=== PATIENT | male | born 1960 | race Caucasian/White ===

== ENCOUNTER 2018-10-21 10:10 | Emergency (ER) | payer OTHER ==
[2018-10-21 10:29] VITALS: BP 152/85
--- NOTE | 2018-10-21 11:13 | UC ---
General HPI - HPI Summary HPI Summary: Patient states he was fixing a shower yesterday, floor was wet - this was while at work at [employer]. He slipped while getting tools and fell and drove his right knee in the wrong direction. States he hurts to walk on it. States it is worse with driving and walking. 20 yrs ago appears to have had an injury and surgery on same knee with Dr. Beth. Meds; Reviewed. States he already has percocet - History of Current Complaint Chief Complaint: UCLowerExtremity Stated Complaint: RT KNEE INJURY Time Seen by Provider: 10/21/18 11:01 Pain Intensity: 10 - Allergy/Home Medications Allergies/Adverse Reactions: Allergies Allergy/AdvReac Type Severity Reaction Status Date / Time bee venom protein (honey bee) Allergy Anaphylatic Verified 10/21/18 10:24 Shock Cephalosporins Allergy Anaphylatic Verified 10/21/18 10:24 Shock Penicillins Allergy Anaphylatic Verified 10/21/18 10:24 Shock tomato Allergy Anaphylatic Verified 10/21/18 10:24 Shock Home Medications: Home Medications Aspirin 81 mg PO DAILY 10/21/18 [History Confirmed 10/21/18] Empagliflozin [Jardiance] 25 mg PO DAILY 10/21/18 [History Confirmed 10/21/18] Gabapentin 600 mg PO TID 10/21/18 [History Confirmed 10/21/18] Metformin HCl [Fortamet] 500 mg PO EVERY OTHER DAY 10/21/18 [History Confirmed 10/21/18] Metoprolol Succinate 25 mg PO DAILY 10/21/18 [History Confirmed 10/21/18] Telmisartan 1 tab PO DAILY 10/21/18 [History Confirmed 10/21/18] oxyCODONE/Acetamin 10/325(NF) [Percocet 10/325 (NF)] 1 tab PO Q4HR PRN 10/21/18 [History Confirmed 10/21/18] PMH/Surg Hx/FS Hx/Imm Hx Previously Healthy: Yes Endocrine History: Diabetes Cardiovascular History: Hypertension - Surgical History Surgical History: Yes Surgery Procedure, Year, and Place: cardiac stents, maker 100% blockage. bilateral elbow ulnar nerves. umbilical and hiatal hernia repair - Social History Alcohol Use: Occasionally Substance Use Type: None Substance Use Comment - Amount & Last Used: Percocet Smoking Status (MU): Former Smoker Household Exposure Type: Cigarettes Review of Systems All Other Systems Reviewed And Are Negative: Yes Physical Exam Triage Information Reviewed: Yes Appearance: Well-Appearing Vital Signs: Initial Vital Signs Temp 98 F 10/21/18 10:18 Pulse 59 10/21/18 10:18 Resp 18 10/21/18 10:18 BP 152/85 10/21/18 10:18 Pulse Ox 96 10/21/18 10:18 Musculoskeletal: Positive: Other: - right knee slightly edematous and erythematous. Full ROM. Pain with meniscal provacation testing and anterior drawer sign Diagnostics - Radiology right knee Radiology Interpretation Completed By: Radiologist Summary of Radiographic Findings: no evidence for fracture Course/Dx - Course Course Of Treatment: This is a 58 yr old who fell at work yesterday and injured right knee Right knee xray : negative SUspect tendon injury vs contusion Plan Recommend continue percocet as needed Can also start Naproxen - take with food Recommend follow up with Occupational Medicine - Dr. Perkins for workers comp injury - Diagnoses Provider Diagnosis: Contusion of right knee Discharge - Sign-Out/Discharge Documenting (check all that apply): Patient Departure All imaging exams completed and their final reports reviewed: Yes - Discharge Plan Condition: Fair Disposition: HOME Patient Education Materials: Knee Pain (ED) Referrals: Val Ball RN [Primary Care Provider] - Henry Perkins MD [Medical Doctor] - Additional Instructions: Recommend continue percocet as needed Can also start Naproxen - take with food Recommend follow up with Occupational Medicine - Dr. Perkins for workers comp injury - Billing Disposition and Condition Condition: FAIR Disposition: Home
[2018-10-21 13:38] LABS: Hepatitis C Antibody Negative (Negative)
== END 2018-10-21 12:03 | disposition home or self-care (01) ==
LOC: UCEAST 10:10
DX: S80.01XA Contusion of right knee, initial encounter (principal); W18.2XXA Fall in (into) shower or empty bathtub, initial encounter; Y93.89 Activity, other specified; Y92.012 Bathroom of single-family (private) house as the place of occurrence of the external cause; Y99.0 Civilian activity done for income or pay; E11.9 Type 2 diabetes mellitus without complications; I10 Essential (primary) hypertension; Z87.891 Personal history of nicotine dependence; Z79.82 Long term (current) use of aspirin; Z88.0 Allergy status to penicillin; Z79.84 Long term (current) use of oral hypoglycemic drugs
CPT/HCPCS: 36415; 86803; 99213; G0463

== ENCOUNTER 2019-01-06 05:34 | Day surgery (SDC) | payer OTHER ==
--- NOTE | 2018-12-29 13:27 | HP ---
HISTORY AND PHYSICAL: DATE OF ADMISSION/SURGERY: 01/06/19 DATE OF OFFICE VISIT: 12/26/18 SURGEON: Mila Rome MD.* (DICTATED BY CLARI MCMILLAN) PROCEDURE: Right knee arthroscopy, partial meniscectomy, possible chondroplasty , synovectomy, and plica excision. CHIEF COMPLAINT: Right knee pain. HISTORY OF PRESENT ILLNESS: Mr. Louise is a 58-year-old male who slipped in the shower while working at [employer] on 10/21/18. He felt a pop in his knee and his knee became extremely painful and swollen after that. Since that time he has continued to have a 6/10 sharp pain along the medial joint line of his knee. Cortisone injection, anti-inflammatories and pain medications have not helped him. He has also tried a brace as well as physical therapy. He feels that physical therapy exacerbated his pain. At this point, he failed conservative treatment and he is a candidate for knee arthroscopy. He also continues to have difficulty walking, bending, pivoting and twisting. PAST MEDICAL HISTORY: Myocardial infarction 2015, borderline diabetes, hypercholesterolemia, chronic pain in bilateral elbows. PAST SURGICAL SURGERY: Bilateral elbow ulnar nerve decompression, right wrist ORIF, and cardiac stent in 2014. MEDICATIONS: 1. Aspirin 81 mg 1 p.o. daily. 2. Lunesta 3 mg 1 p.o. at bedtime as needed. 3. Percocet 10/325 mg 1 p.o. every 6 hours as needed for pain. 4. Jardiance 25 mg 1 p.o. daily. 5. Telmisartan 40 mg 1 p.o. daily. 6. Metformin HCl 500 mg 1 tab p.o. every other day. 7. Gabapentin 300 mg 1 p.o. twice daily. ALLERGIES: PENICILLIN and CEPHALOSPORIN result in rash and hives. CEPHALOSPORIN results in anaphylactic shock. FAMILY HISTORY: Positive for coronary artery disease, hypertension, rheumatoid arthritis. SOCIAL HISTORY: He works at [employer]. He lives at home with his spouse. He is a former smoker, he quit in 2014. He was smoking 2 packs per day x20 years prior to quitting. He denies any recreational drug use. He drinks 3 alcoholic beverages per week. He is right-hand dominant. REVIEW OF SYSTEMS: General: Negative for fevers, chills, night sweats, unexplained weight loss or gain. No known anesthesia problems. HEENT: Negative for headache, lightheadedness, syncopal episodes or visual changes. Integumentary: Negative for abrasions, lesions or open wounds. Cardiothoracic: Negative for hypertension, chest pain, palpitations, or edema. Respiratory: Negative for shortness of breath with exertion, chronic cough or wheezing. GI: Negative for nausea, vomiting, diarrhea, constipation, or GERD symptoms. : Negative for nocturia, urinary frequency, urgency, history of UTIs or kidney problems. Musculoskeletal: Positive for right knee pain, positive for history of right wrist fracture. Negative for chronic or intermittent back pain. Neurologic: Negative for paraesthesias, numbness, history of seizures, stroke or poor balance. Negative for anxiety or depression. Endocrine: Positive for borderline diabetes. Negative for thyroid issues. Hematologic: Negative for easy bruising, anemia, bleeding disorders, history of DVT or PE. ID: Negative for history of MRSA infection, hep C, or HIV. PHYSICAL EXAMINATION GENERAL: Well-developed, well-nourished, 58-year-old male, in no acute distress. VITAL SIGNS: Height 67 inches, weight 240 pounds, pulse 70, BP 156/82, respirations 12, BMI 37.7. HEENT: Normocephalic, atraumatic. PERRLA. Extraocular movements intact. Throat is clear. NECK: Supple. No palpable lymph nodes. PULMONARY: Lungs are clear to auscultation bilaterally. No wheezes, rales or rhonchi. CARDIO: Regular rate and rhythm. S1 and S2 normal. No murmurs, rubs, or gallops. No edema. ABDOMEN: Positive bowel sounds, soft and nontender. NEUROLOGIC: A and O x3. Cranial nerves II through XII are intact. Sensation is intact to light touch. MUSCULOSKELETAL: Right lower extremity: Skin is intact with no abrasions or open wounds. There is no soft tissue swelling, erythema, or bruising. No palpable masses or lymph nodes. Moderate effusion of the knee with tenderness along the medial joint line. Positive Apley's and positive Malinda's. Range of motion is 0 to 100 degrees. Flexion with severe pain at end range. No varus or valgus instability. He is able to dorsiflex and plantarflex his ankle with 5/5 strength. Sensation is intact to light touch. DP pulses 2+. DIAGNOSTIC STUDIES: MRI of the right knee from 11/11/18 showed bone marrow edema along the medial femoral condyle, possible small osteochondral defect as well as medial meniscus tear. IMPRESSION: Right knee medial meniscus tear. PLAN: The patient is scheduled to undergo a right knee arthroscopy, partial meniscectomy, possible chondroplasty and synovectomy with Dr. Rome on . Dr. Rome discussed the procedure as well as the risks and benefits with the patient and he elects to proceed. He will return to the office 10 to 14 days postop for followup and suture removal. The patient is already on Percocet for chronic pain and we will continue this for postoperative pain management. CLARI MCMILLAN [id number]/[facility] #: [id number] MTDAngy
[~2019-01-06 05:34] MED LIST: Buffered Lidocaine 1% SYRIN* 1 ML/SYRINGE INTRADERM ONE
[2019-01-06] MEDS ORDERED: Dexamethasone IV* 4 MG/ML 1 ML (4 MG) ONE (05:59)
[2019-01-06] MEDS ORDERED: Buffered Lidocaine 1% SYRIN* 1 ML/SYRINGE INTRADERM ONE (06:00)
[2019-01-06] MEDS ORDERED: Famotidine IV* 10 MG/ML 2 ML (20 mg) ONE (06:00)
[2019-01-06] MEDS ORDERED: Dexamethasone IV* 4 MG/ML 1 ML (4 MG) IV SLOW PU ONE (06:00)
[2019-01-06] MEDS ORDERED: ceFAZolin 2 GM in NS PREMIX(*) 0 GM/0 ML BAG IVPB ONE (06:00)
[2019-01-06] MEDS ORDERED: Lactated Ringers 1000 ML Bag* 1,000 ML IV SCH (06:00)
[2019-01-06] MEDS ORDERED: Famotidine IV* 10 MG/ML 2 ML (20 mg) IV ONE (06:00)
[2019-01-06] MEDS ORDERED: Clindamycin 900 MG/D5W BAG(*) 900 MG/50 ML BAG IVPB ONE (06:36)
[2019-01-06] MEDS ORDERED: EPINEPHRINE 1 MG/ML 1 ML VIAL ONE (06:49)
[2019-01-06] MEDS ORDERED: methylPREDNISolone ACETATE 80* 80 MG/ML 1 ML VIAL ONE (06:49)
[2019-01-06] MEDS ORDERED: ROPIVACAINE 5 MG/ML 30 ML BTL (0.5%) ONE (06:50)
[2019-01-06] MEDS ORDERED: Ondansetron INJ* 2 MG/ML VIAL ONE (07:14)
[2019-01-06] MEDS ORDERED: Ketorolac INJ* 30 MG/ML 1 ML VIAL ONE (07:14)
[2019-01-06] MEDS ORDERED: Chloroprocaine 2%* 20 ML VIAL ONE (07:14)
[2019-01-06] MEDS ORDERED: Propofol* 10 MG/ML 20 ML BTL ONE (07:14)
[2019-01-06] MEDS ORDERED: Midazolam* 1 MG/ML 5 ML VIAL (5 MG) ONE (07:19)
[2019-01-06] MEDS ORDERED: Naloxone* 0.4 MG/ML 1 ML VIAL IV PRN (07:54)
[2019-01-06] MEDS ORDERED: fentaNYL* 50 MCG/ML 2 ML VIAL (100 MCG VIAL) IV PRN (07:54)
[2019-01-06] MEDS ORDERED: Ondansetron INJ* 2 MG/ML VIAL IV PRN (07:54)
[2019-01-06] MEDS ORDERED: DiMENhydriNATE IV* 50 MG/ML VIAL IV PUSH PRN (07:54)
[2019-01-06] MEDS ORDERED: oxyCODONE/Acetamin 5/325 MG* TAB PO PRN (07:54)
[2019-01-06] MEDS ORDERED: oxyCODONE/Acetamin 5/325 MG* TAB ONE (10:06)
[2019-01-06 10:07] VITALS: BP 144/67
--- NOTE | 2019-01-06 22:24 | OP ---
OPERATIVE NOTE: DATE OF OPERATION: 01/06/19 - [facility] DATE OF : 58 ATTENDING SURGEON: Mila Rome MD ANESTHESIOLOGIST: Dr. Correia. ANESTHESIA: General. PRE-OP DIAGNOSES: Right knee pain with medial femoral condyle osteochondral defect and possible meniscal tear. POST-OP DIAGNOSES: Right medial femoral condyle osteochondral defect, mild-to- moderate degenerative osteoarthritis in the medial and patellofemoral compartment, anterior synovitis. OPERATIVE PROCEDURE: Right knee arthroscopy with anterior synovectomy. EBL: Less than 25 cc. SPECIMEN: None. COMPLICATIONS: None. BRIEF HISTORY/INDICATIONS: Mr. Louise is a 58-year-old gentleman, who had a fall while working on the right knee 10/21/18. Since that time, he has had mechanical symptoms along the medial joint line. MRI did show an osteochondral defect in the medial femoral condyle as well as a possible medial meniscal tear. The patient failed conservative treatment and continued to have pain and mechanical symptoms. Due to continued pain and decreased quality of life, he elected to undergo right knee arthroscopy with possible synovectomy, possible chondroplasty, possible partial meniscectomy. Informed consent was obtained from the patient. He understood the risks of the surgery included, but were not limited to bleeding, infection, damage to nearby structures, continued pain , need for further surgery, re-tear of the meniscus, progression of arthritis, breakdown of cartilage, stroke, heart attack, blood clot, and . He wished to proceed. INTRAOPERATIVE FINDINGS: Intraoperatively, the patient was found to have both an osteophyte along the medial femoral condyle as well as the osteochondral defects. The cartilage was not completely broken down over this. Decision was made to not perform chondroplasty. There was some grade 2 and 3 Outerbridge cartilage changes of the patellofemoral compartments. There was a significant amount of anterior synovitis and question of a chronic anterior and medial meniscal tear. DESCRIPTION OF PROCEDURE: Mr. Louise was identified in the preanesthesia unit. His right lower extremity was marked as the correct operative side. Informed consent was signed and placed in the chart. The patient was taken to the operating room and placed under anesthesia. Right lower extremity was prepped and draped in the usual sterile fashion. Preop time-out was made to correctly identify the patient, side, and site. Appropriate perioperative antibiotics were given within 1 hour of incision. Standard 0.5 cm anterolateral portal incision was made with a 10 blade and carried down to the capsule. Trocar was introduced. As soon as the light and water sources were turned on, there was immediate visualization of the suprapatellar pouch. A tour of the knee joint was performed. Suprapatellar pouch had some small pieces of cartilage, but no other abnormality. Patellofemoral compartment shows grade 2 and 3 Outerbridge cartilage changes with frayed cartilage. No large areas of exposed subchondral bone. There was an osteophyte along the medial femoral condyle. The medial gutter showed no loose body or plica. Medial femoral condyle had the OCDs, but the cartilage was not broken down full thickness over this area. There was no large cartilage flapping. There was an abnormality along the anterior medial meniscus that seemed to be a chronic radial tear. Posterior meniscus showed no obvious meniscal tear. ACL and PCL appeared to be intact. There was some significant amount of anterior synovitis, which did impinge with knee range of motion along the medial compartment and patellofemoral compartment. The knee was placed in a [id number] position. No obvious tear of the lateral meniscus was noted. No significant degenerative changes. Lateral gutter had no loose body or plica. Under direct visualization, a medial portal incision was made with a 10-blade. A probe was introduced and a second tour of the knee joint was performed. There was no obvious tear of the medial meniscus posteriorly. The shaver and radiofrequency ablation wand were used to perform an anterior synovectomy. There was no longer significant impingement along the anterior cartilage of the medial femoral condyle or in the patellofemoral compartment. Decision was made not to perform chondroplasty along the osteochondral defect of the medial femoral condyle, as this cartilage was completely broken down. The knee was copiously irrigated. Any small bits of cartilage were carefully irrigated and removed from the knee joint. All instruments were removed. Incisions were closed using 3-0 nylon suture. Incisions were covered with Xeroform, 4x4s, and Webril. Wojciech wrap and cold pack were placed over this. The patient's anesthesia was reversed without difficulty. He was taken to the PACU in stable condition. Intended weightbearing will be weightbearing as tolerated. Intended DVT prophylaxis will be aspirin. [id number]/[facility] #: [id number] [facility]
== END 2019-01-06 10:30 | disposition home or self-care (01) ==
LOC: OR 05:34
PROVIDERS: ATTEND Orthopaedic Surgery Adult Reconstructive Orthopaedic Surgery
DX: S83.8X1A Sprain of other specified parts of right knee, initial encounter (principal); M17.11 Unilateral primary osteoarthritis, right knee; M21.861 Other specified acquired deformities of right lower leg; W19.XXXA Unspecified fall, initial encounter; Y92.89 Other specified places as the place of occurrence of the external cause; Y99.0 Civilian activity done for income or pay; I25.2 Old myocardial infarction; R73.03 Prediabetes; E78.00 Pure hypercholesterolemia, unspecified; Z87.891 Personal history of nicotine dependence
CPT/HCPCS: A9270-GY; J0690; J1040; J1100; J1885; J2250; J2400; J2405; J2704; J2795

== ENCOUNTER 2019-02-03 18:39 | Inpatient (IN) | payer OTHER ==
--- NOTE | 2019-02-03 21:29 | ED ---
Lower Extremity - HPI Summary HPI Summary: Patient complains of right knee pain 3 days. Patient states history of right knee arthroscopy with Dr. Rome at beginning of January. No symptoms until 3 days ago when he started walking up stairs at work. Complains of chills, swelling, pain and drainage of "cottage cheese" and "dark fluid" from surgical incision site starting 2 days ago. Patient states he was evaluated by Dr. Rome yesterday who attempted to aspirate knee with negative results. Patient was started on clindamycin and has taken first dose only this morning. Patient has follow-up appointment with Dr. Rome tomorrow. Denies trauma, fever, cough , sore throat, CP, SOB, N/V/D, abdominal pain, change in urine, change in BM. Medical history is per DM, cardiac stent. - History of Current Complaint Chief Complaint: EDExtremityLower Stated Complaint: POSS INFECTION PER PT Time Seen by Provider: 02/03/19 21:15 Hx Obtained From: Patient, Family/Zoo Director Mechanism Of Injury: Unknown Onset of Pain: Days Onset/Duration: Days Severity Initially: Mild Severity Currently: Severe Pain Intensity: 10 Pain Scale Used: 0-10 Numeric Timing: Constant Location: Is Discrete @ Character Of Pain: Aching, Throbbing Associated Signs And Symptoms: Positive: Swelling, Knee Pain Aggravating Factor(s): Standing, Ambulation, Movement, Weight Bearing Alleviating Factor(s): Rest, Elevation Able to Bear Weight: Yes - Allergies/Home Medications Allergies/Adverse Reactions: Allergies Allergy/AdvReac Type Severity Reaction Status Date / Time bee venom protein (honey bee) Allergy Anaphylatic Verified 01/06/19 06:06 Shock Cephalosporins Allergy Anaphylatic Verified 01/06/19 06:06 Shock Penicillins Allergy Anaphylatic Verified 01/06/19 06:06 Shock tomato Allergy Anaphylatic Verified 01/06/19 06:06 Shock PMH/Surg Hx/FS Hx/Imm Hx Endocrine/Hematology History: Reports: Hx Diabetes - BORDERLINE Denies: Hx Thyroid Disease Cardiovascular History: Reports: Hx Congestive Heart Failure - HX OF-WITH THE HEART ATTACK- REPORTS NO PROBLEMS SINCE, Hx Coronary Artery Disease - [address], Hx Hypertension - ON MEDICATION, Other Cardiovascular Problems/ Disorders - [employer]- [id number] Denies: Hx Pacemaker/ICD Respiratory History: Denies: Hx Asthma, Hx Chronic Obstructive Pulmonary Disease (COPD), Other Respiratory Problems/Disorders GI History: Reports: Hx Hiatal Hernia - REPORTS REPAIR IN THE PAST Denies: Other GI Disorders History: Denies: Hx Renal Disease, Other Problems/Disorders Musculoskeletal History: Denies: Other Musculoskeletal History Sensory History: Reports: Hx Contacts or Glasses - READING GLASSES Denies: Hx Hearing Aid Opthamlomology History: Reports: Hx Contacts or Glasses - READING GLASSES Neurological History: Denies: Hx Seizures, Other Neuro Impairments/Disorders Psychiatric History: Denies: Hx Panic Disorder - Surgical History Surgery Procedure, Year, and Place: cardiac stents, maker 100% blockage. bilateral elbow ulnar nerves. umbilical and hiatal hernia repair. RIGHT KNEE- GROUND A CHIP OFF OF KNEE. RIGHT WRIST WITH HARDWARE Hx Anesthesia Reactions: No - Immunization History Immunizations Up to Date: Yes Infectious Disease History: No Infectious Disease History: Reports: Hx Hepatitis - possibly? Denies: Traveled Outside the [place] in Last 30 Days - Family History Known Family History: Positive: Non-Contributory - Social History Alcohol Use: Rare Substance Use Type: Reports: Prescribed Substance Use Comment - Amount & Last Used: [employer] Smoking Status (MU): Former Smoker Amount Used/How Often: 1 .5-2 PPD X 20 YEARS Have You Smoked in the Last Year: No Review of Systems Constitutional: Negative Eyes: Negative ENT: Negative Cardiovascular: Negative Respiratory: Negative Gastrointestinal: Negative Genitourinary: Negative Musculoskeletal: Other Skin: Negative Neurological: Negative Psychological: Normal All Other Systems Reviewed And Are Negative: Yes Physical Exam - Summary Physical Exam Summary: Significant Extra warmth noted to right knee. Very limited range of motion to right knee, unclear whether secondary to pain or swelling. No erythema, deformity, ecchymosis noted. surgical incision sites appear clean dry and intact. No purulent drainage. Calf soft Nontender. PMS intact distally. Triage Information Reviewed: Yes Vital Signs On Initial Exam: Initial Vitals Temp Pulse Resp BP Pulse Ox 98.8 F 87 18 147/69 93 02/03/19 18:59 02/03/19 18:59 02/03/19 18:59 02/03/19 18:59 02/03/19 18:59 Vital Signs Reviewed: Yes Appearance: Positive: Well-Appearing Skin: Positive: Warm Head/Face: Positive: Normal Head/Face Inspection Eyes: Positive: Normal Neck: Positive: Supple Respiratory/Lung Sounds: Positive: Clear to Auscultation Cardiovascular: Positive: Normal Abdomen Description: Positive: Nontender Musculoskeletal: Positive: Normal Neurological: Positive: Normal Psychiatric: Positive: Normal AVPU Assessment: Alert - Kvng Coma Scale Best Eye Response: 4 - Spontaneous Best Motor Response: 6 - Obeys Commands - Review to be due to Best Verbal Response: 5 - Oriented Coma Scale Total: 15 Procedures - Sedation Patient Received Moderate/Deep Sedation with Procedure: No Diagnostics - Vital Signs Vital Signs Temp Pulse Resp BP Pulse Ox 02/03/19 18:59 98.8 F 87 18 147/69 93 - Laboratory Result Diagrams: 02/04/19 08:31 02/03/19 21:53 Lab Statement: Any lab studies that have been ordered have been reviewed, and results considered in the medical decision making process. Lower Extremity Course/Dx - Course Course Of Treatment: Patient complains of right knee pain 3 days. Patient states history of right knee arthroscopy with Dr. Rome at beginning of January. No symptoms until 3 days ago when he started walking up stairs at work. Complains of chills, swelling, pain and drainage of "cottage cheese" and "dark fluid" from surgical incision site starting 2 days ago. Patient states he was evaluated by Dr. Rome yesterday who attempted to aspirate knee with negative results. Patient was started on clindamycin and has taken first dose only this morning. Patient has follow-up appointment with Dr. Rome tomorrow. Denies trauma, fever, cough, sore throat, CP, SOB, N/V/D, abdominal pain, change in urine, change in BM. Medical history is per DM, cardiac stent. Vital signs within normal limits. WBC 11.4. CRP 136. Labs otherwise unremarkable. Discussed patient with orthopedics online editor Dr. Clement who recommended IV antibiotics and admission with ortho consult in the morning. Patient admitted to hospitalist. - Diagnoses Provider Diagnoses: Septic arthritis of knee, right Discharge ED - Sign-Out/Discharge Documenting (check all that apply): Patient Departure - Discharge Plan Condition: Stable Disposition: ADMITTED TO [facility] - Billing Disposition and Condition Condition: STABLE Disposition: Admitted to [facility] - Attestation Statements Provider Attestation: I was available for consult. This patient was seen by the JORGE L. The patient was not presented to, seen by, or examined by me. Dell Anglin MD
[2019-02-03 22:02] LABS: ABS Basophils 0.1 10^3/ul (0-0.2); ABS Eosinophils 0.1 10^3/ul (0-0.6); ABS Lymphocytes 3.8 10^3/ul (1.0-4.8); ABS Monocytes 1.3 10^3/ul (0-0.8); ABS Neutrophils 6.1 10^3/ul (1.5-7.7); Eosinophil % 1.2 %; Hematocrit 43 % (42-52); Hemoglobin 14.9 g/dL (14.0-18.0); Lymphocyte % 32.9 %; Mean Corpuscular HGB Conc 35 g/dL (31-36); Mean Corpuscular Hemoglobin 34 pg (27-31); Mean Corpuscular Volume 99 fL (80-94); Mean Platelet Volume 8.2 fL (7.4-10.4); Nucleated Red Blood Cells % 0.1; Platelet Count 170 10^3/uL (150-450); Red Blood Count 4.32 10^6 /uL (4.18-5.48); Red Cell Distribution Width 13 % (10-15); White Blood Count 11.4 10^3/uL (3.5-10.8)
[2019-02-03 22:18] LABS: Albumin 4.1 g/dL (3.2-5.2); Albumin/Globulin Ratio 1.3 (1-3); BUN/Creatinine Ratio 15.6 (8-20); C Reactive Protein 134.12 mg/L (<8.01); Calcium 8.9 mg/dL (8.6-10.3); EGFR African American 104.5 (>60); EGFR Non-African American 86.4 (>60); Globulin 3.2 g/dL (2-4); Potassium 3.5 mmol/L (3.5-5.0); Total Bilirubin 1.6 mg/dL (0.2-1.0); Total Protein 7.3 g/dL (6.4-8.9)
[2019-02-03] MEDS ORDERED: HYDROcodone/ACETAMIN 5-325 MG* 1 TAB PO ONE (22:42)
[2019-02-03] MEDS ORDERED: Morphine 4 MG/ML VIAL (1 ml) 4 MG/ML VIAL IV ONE (23:35)
[2019-02-03] MEDS ORDERED: Clindamycin VIAL(*) 450 MG in NS 0.9% 50 ML* 50 ML IVPB ONE (23:35)
[2019-02-03] MEDS ORDERED: Clindamycin 600 MG/D5W BAG(*) 600 MG/50 ML BAG IV ONE (23:59)
[2019-02-04 00:29] LABS: Urine Appearance Clear; Urine Bacteria Absent (Absent); Urine Bilirubin Negative (Negative); Urine Blood 1+ (Negative); Urine Color Yellow; Urine Glucose 3+(>=500 mg/dL) (Negative); Urine Ketones Negative (Negative); Urine Nitrite Negative (Negative); Urine Protein Negative (Negative); Urine Red Blood Cell Trace(0-2/hpf) (Absent); Urine Specific Gravity 1.038 (1.010-1.030); Urine Urobilinogen Negative (Negative); Urine White Blood Cell Absent (Absent)
[2019-02-04] MEDS ORDERED: Iodixanol* (CONTRAST) 320 MG/ML 100 ML SDV IV ONE (03:36)
[2019-02-04] MEDS ORDERED: Morphine 4 MG/ML VIAL (1 ml) 4 MG/ML VIAL IV PRN (04:27)
[2019-02-04] MEDS ORDERED: Acetaminophen TAB* 325 MG PO PRN ×2 (04:33→23:10)
[2019-02-04] MEDS: Enoxaparin(*) 40 MG/0.4 ML SYR SUBCUT SCH (06:04)
[2019-02-04] MEDS: oxyCODONE/Acetamin 5/325 MG* TAB PO PRN ×2 (06:04→12:23)
--- NOTE | 2019-02-04 07:13 | HP ---
CC: Dr. Henri Clark; Dr. Mila Rome * ADMISSION HISTORY AND PHYSICAL: DATE OF ADMISSION: 02/04/19 CHIEF COMPLAINT: Right knee pain. HISTORY OF PRESENT ILLNESS: This is a 58-year-old gentleman with history of FL in 2015, status post stenting to the LAD, history of borderline diabetes, hypercholesterolemia, osteoarthritis, and neuropathy. He recently underwent right knee arthroscopic cleanup, was noted to have swelling in that same right knee since last . The patient was seen by his orthopedic surgeon, Dr. Rome, who tried to aspirate the joint, but just had blood according to him as he was both taking aspirin 81 mg and 325 mg. After failed aspiration, Dr. Rome apparently suggested him to be started on clindamycin. He noticed that his swelling has been worsening especially if he walks up the stairs and now he has had decreased range of motion, limited by his severe pain and tenderness in that same knee. He denies any fever, chills, but does have some warmth around that joint. PAST MEDICAL HISTORY: As mentioned: 1. Coronary disease, status post stenting in 2014. 2. Borderline diabetes with neuropathy. 3. Hyperlipidemia. 4. Osteoarthritis. PAST SURGICAL HISTORY: He has had bilateral elbow ulnar nerve decompression, right wrist ORIF, cardiac stent in 2015 to the LAD, umbilical hernia repair in 2018, and recent right knee arthroscopy with sinusectomy. HOME MEDICATIONS: The patient is currently on: 1. Aspirin both 81 mg and 325 mg. 2. Lunesta 3 mg p.o. at bedtime as needed. 3. Percocet 10/325 mg 1 tablet every 6 hours as needed for pain. 4. Jardiance 25 mg oral daily. 5. Telmisartan 40 mg oral daily. 6. Metformin 500 mg every other day. 7. Gabapentin 300 mg oral twice a day. ALLERGIES: The patient is allergic to BEE VENOM, CEPHALOSPORIN, PENICILLIN, and TOMATO all of which gives him anaphylactic shock and he carries an EpiPen for that. FAMILY HISTORY: Positive for coronary disease, hypertension, arthritis. SOCIAL HISTORY: He works at [employer], lives with his spouse. He is a former smoker, quit in 2014, prior to that he used to 2 packs per day for 20 years. Denies any other recreational drug use or alcohol abuse. He is otherwise full code and his is healthcare proxy. REVIEW OF SYSTEMS: A 14-point review of systems did not reveal any new information other than the ones stated in the HPI. PHYSICAL EXAMINATION GENERAL: The patient is awake, alert, and oriented x3. Does not appear to be in any acute distress. VITAL SIGNS: In the ER, BP was noted to be 120/64, heart rate 71, respiration rate 18, saturating 95% on room air, temperature 98.8. HEAD AND NECK: Atraumatic and normocephalic. Bilateral pupils are reactive. Oral mucosa was moist. NECK: Supple. No jugular venous distention. HEART: S1, S2, regular rate and rhythm. ABDOMEN: Obese, soft, nontender. EXTREMITIES: The patient has severe swelling just superior to the patella with severe tenderness to palpation. DIAGNOSTIC STUDIES/LAB DATA: Minimally elevated white count of 11.4, hemoglobin and hematocrit stable, platelet count was stable. Comprehension metabolic panel was unremarkable. C-reactive protein was elevated at 134. Urinalysis was 1+ blood and 3+ glucose. Negative for any nitrites or leuk esterase. IMPRESSION: This is a 58-year-old male here with severe joint pain, and limited range of motion due to swollen joint. ASSESSMENT: 1. Right knee pain questionable with septic arthritis. We will start the patient on clindamycin per Dr. Kelly, the covering orthopedic, especially given that the patient was already started on this few days ago by Dr. Rome in the outpatient setting. They did not think a joint tap urgently is necessary at this point. We will consult Ortho regarding further management possibly another arthroscopy versus drainage. In the meantime, we will order a CAT scan of that joint with contrast. 2. History of hypertension. Restart home medication once actual doses are confirmed. 3. History of diabetes. We will start the patient on fingerstick monitoring a.c. h.s. and hold p.o. medication and start the patient on rapid acting insulin sliding scale. 4. History of coronary disease, status post stenting on baby aspirin on a daily basis. We will hold aspirin until a joint tap could be performed. 5. DVT prophylaxis. We will consider starting the patient on Lovenox. 6. Code status. Full code and the is the healthcare proxy. [id number]/[facility] #: [id number] [facility]
[2019-02-04 08:39] LABS: ABS Basophils 0.1 10^3/ul (0-0.2); ABS Eosinophils 0.2 10^3/ul (0-0.6); ABS Lymphocytes 3.4 10^3/ul (1.0-4.8); ABS Monocytes 1.1 10^3/ul (0-0.8); Eosinophil % 1.9 %; Hematocrit 40 % (42-52); Hemoglobin 13.9 g/dL (14.0-18.0); Lymphocyte % 31.5 %; Mean Corpuscular HGB Conc 35 g/dL (31-36); Mean Corpuscular Hemoglobin 34 pg (27-31); Mean Corpuscular Volume 99 fL (80-94); Mean Platelet Volume 8.1 fL (7.4-10.4); Nucleated Red Blood Cells % 0.2; Platelet Count 153 10^3/uL (150-450); Red Blood Count 4.03 10^6 /uL (4.18-5.48); Red Cell Distribution Width 13 % (10-15); White Blood Count 10.8 10^3/uL (3.5-10.8)
[2019-02-04] MEDS ORDERED: Lidocaine 2% PF * 5 ML VIAL ONE (09:00)
[2019-02-04] MEDS ORDERED: Influenza VAC *QUAD* 2019-20* 0.5 ML SYRINGE IM ONE (09:00)
[2019-02-04] MEDS: Insulin LISPRO* 1 UNITS UNIT SUBCUT SCH ×3 (09:07→17:23)
[2019-02-04] MEDS: Clindamycin 600 MG/D5W BAG(*) 600 MG/50 ML BAG IV SCH ×2 (09:36→15:45)
[2019-02-04] MEDS: Gabapentin CAP(*) 300 MG PO SCH (09:36)
--- NOTE | 2019-02-04 10:38 | CONSULT ---
Consult Consult: Please see full dictated note for details. I saw and examined Floyd at bedside this morning to evaluate for right septic knee. He reports having feeling of chills though no fever. He did not start clindamycin until yesterday morning and present to the emergency room in the afternoon due to unrelenting, worsening knee pain. The lateral portal has been intermittently draining a substance consistent with cottage cheese. On exam his right knee has minimal blotchy erythema laterally, knee is globally very tender, there is a moderate joint effusion. I am able to passively range the knee 0-15 with severe pain limiting him from flexing beyond 15 degrees. After time out and consents complete, a joint aspiration was attempted though yield a dry tap. Care was taken to avoid area of erythema, there was no erythema at site of aspiration. I cannot definitively rule out septic joint due to severe pain, inability to bear weight, reported purulent drainage. He should remain NPO, hold chemical DVT prophy. Dr Rome will see the patient this afternoon at roughly 13:30 to determine need for washout. He did not eat or drink today. He did receive lovenox at 0600
[2019-02-04 11:43] LABS: INR 1.19 (0.82-1.09)
--- NOTE | 2019-02-04 12:32 | CONS ---
CONSULTATION REPORT: DATE OF CONSULT: 02/04/19 ATTENDING ORTHOPEDIC PROVIDER: Dr. Mila Rome. CHIEF COMPLAINT: Right knee pain. HISTORY OF PRESENT ILLNESS: The patient is a 58-year-old male. He presented to the emergency room yesterday, 02/03/19, with excruciating right knee pain and inability to bear weight without any known trauma. One month ago, he had a right knee arthroscopy with Dr. Rome and was recovering well with full weightbearing and nonpainful range of motion of the right knee up until last , the 29 of January. Reports that he developed severe onset of right knee pain and swelling and was seen by Dr. Rome on 01/30/19. An aspiration was attempted, but this was a dry tap used, started on clindamycin though he was unable to sampler pickup this prescription until yesterday, 02/03/19, in the morning. Since being seen at the office, pain and swelling had been worsening to the point where as of yesterday afternoon, the patient was entirely unable to bear weight through the right lower extremity and had excruciating pain of the right knee. Reports that it was red in the lateral part of the knee, has periodically been draining cottage cheese like discharge. He denies any known fever, but has felt that he has had chills. He denies any recent illness. His past medical history includes coronary artery disease with stenting in 2014, borderline diabetes with neuropathy, hyperlipidemia, and osteoarthritis. He has had general anesthesia without complication before. He has no history of heart attack, stroke or blood clot. He is n.p.o. at this time and has been since yesterday. PAST MEDICAL HISTORY: Coronary disease, stenting in 2014, borderline diabetes with neuropathy, hyperlipidemia and osteoarthritis. PAST SURGICAL HISTORY: Bilateral elbow ulnar nerve decompression, right wrist ORIF, cardiac stent in 2015 to the LAD, umbilical hernia in 2018, and right knee scope 1 month ago. HOME MEDICATIONS: Include: 1. Aspirin both 81 mg and 325 mg. 2. Lunesta 3 mg p.o. at bedtime as needed. 3. Percocet 10/325 mg 1 tablet every 6 hours as needed for pain. 4. Jardiance 25 mg oral daily. 5. Telmisartan 40 mg daily. 6. Metformin 500 mg every other day. 7. Gabapentin 300 mg oral twice daily. ALLERGIES: BEE VENOM, CEPHALOSPORIN, PENICILLIN, and tomato. CEPHALOSPORIN and PENICILLIN cause anaphylaxis. FAMILY HISTORY: Coronary artery disease, hypertension, and osteoarthritis. SOCIAL HISTORY: The patient lives with his spouse, works at [employer]. He is a former smoker, quit in 2015. Denies alcohol or recreational drug use. REVIEW OF SYSTEMS: General: Positive for chills. Negative for any fever or recent illness. HEENT: Negative for any headache or change in vision. Cardiac : Positive for a history of stents. No recurrent chest pain. No history of heart attack. Respiratory: No shortness of breath. GI: No abdominal pain, nausea, vomiting or diarrhea. : No dysuria. Musculoskeletal: No pain in bilateral upper extremities or left lower extremity. Positive for severe right knee pain. Neuro: Denies any numbness or tingling of the extremities. PHYSICAL EXAM: Vital Signs: Temperature 98.3, pulse rate 72, respiratory rate 16, oxygen saturation 93%, and blood pressure 134/52. General: Nontoxic appearing, in no acute distress. HEENT: Head is normocephalic, atraumatic. Extraocular movements intact. Heart: S1, S2. Lungs: Clear to auscultation bilaterally. Abdomen: Nondistended, nontender. Extremities: Bilateral upper extremities, nontender. Skin envelope intact, nontender, full range of motion without pain at all joints. Lower extremities: Left lower extremity skin envelope intact, nontender, full range of motion at all joints without pain. Right lower extremity, skin envelope is intact. He is exquisitely tender globally around the knee. Laterally, there are some very mild blotchy erythema, this area is no more tender than the rest of the knee. There is a moderate joint effusion. His leg is currently in full extension. He is unable or unwilling to actively flex the knee. Passively unable to range the knee from 0 to roughly 15 degrees. At 15 degrees, he has severe pain. There is no pain with range of motion of the hip, ankle or MTPs on the right side. DIAGNOSTIC STUDIES/LAB DATA: CT scan of right knee, moderate joint effusion, induration surrounding the ACL, subcu edema in the anterior aspect of the knee, induration of Hoffa's fat pad, no osseous abnormalities. Laboratory Studies: White blood cell count today 10.8, hemoglobin 13.3, hematocrit 40. Sed rate yesterday was 40 and CRP yesterday was 134. We will add a CRP onto today's labs. IMPRESSION: This is a 58-year-old male with severe right knee pain, possible septic joint. PROCEDURE NOTE: Time-out and consent were performed. Aspiration of the right knee was attempted. The patient did not tolerate this well and this was a dry- tap. PLAN/RECOMMENDATIONS: The patient needs to wear a knee immobilizer on the right side. He can continue on IV clindamycin. He should be n.p.o. and hold chemical DVT prophylaxis. Dr. Rome will see him at roughly 1:30 today. I expect he will need to be taken to the OR for washout of the right knee after Dr. Rome sees the patient. Added a CRP and INR onto his tests for today. CLARI WATERS [id number]/[facility] #: [id number] ALEC[facility]
[2019-02-04] MEDS: Morphine INJ* 4 MG/ML 1 ML SYRINGE (NEW SYRINGE VERSION) IV PRN (13:19)
--- NOTE | 2019-02-04 13:33 | PN ---
Subjective Date of Service: 02/04/19 Interval History: Patient feels his knee pain is not well controlled but also mentioned he has not had pain medication in several hours. Continues to have chills, which patient reports started 02/01/19. Denies symptomatic fever, chest pain, difficulty breathing, abd pain. Denies further purulent drainage from wound today. Objective Active Medications: Acetaminophen (Tylenol Tab*) 650 mg PO Q4H PRN PRN Reason: PAIN - MILD Aspirin (Aspirin 81 Mg Chew Tab*) 81 mg PO QPM [facility] Enoxaparin Sodium (Lovenox(*)) 40 mg SUBCUT 0900 [facility] Last Admin: 02/04/19 06:04 Dose: 40 mg Gabapentin (Neurontin Cap(*)) 600 mg PO BID [facility] Last Admin: 02/04/19 09:36 Dose: 600 mg Clindamycin HCl/Dextrose (Cleocin 600 Mg/50 Ml(*)) 600 mg in 50 mls @ 100 mls/ hr IV Q8H [facility] Last Admin: 02/04/19 09:36 Dose: 100 mls/hr Insulin Human Lispro (Humalog*) 0 units SUBCUT ACHS [facility]; Protocol Last Admin: 02/04/19 12:04 Dose: Not Given Losartan Potassium (Cozaar Tab*) 50 mg PO QPM [facility]; Protocol Metoprolol Succinate (Toprol Xl Tab*) 25 mg PO QPM [facility] Morphine Sulfate (Morphine Inj (Syringe)*) 4 mg IV Q4H PRN PRN Reason: PAIN - SEVERE Last Admin: 02/04/19 13:19 Dose: 4 mg Oxycodone/Acetaminophen (Percocet 5/325 Tab*) 1 tab PO Q4H PRN PRN Reason: PAIN - MODERATE Last Admin: 02/04/19 12:23 Dose: 1 tab Vital Signs - 8 hr 02/04/19 02/04/19 02/04/19 05:56 06:04 07:15 Temperature 98.1 F 98.3 F Pulse Rate 80 72 Respiratory 20 20 16 Rate Blood Pressure 136/58 134/52 (mmHg) O2 Sat by Pulse 93 93 Oximetry 02/04/19 02/04/19 02/04/19 08:00 08:26 09:36 Temperature Pulse Rate Respiratory 18 18 17 Rate Blood Pressure (mmHg) O2 Sat by Pulse Oximetry 02/04/19 02/04/1902/04/19 11:15 12:23 12:26 Temperature 98.8 F Pulse Rate 73 Respiratory 18 18 18 Rate Blood Pressure 121/51 (mmHg) O2 Sat by Pulse 94 Oximetry 02/04/19 13:19 Temperature Pulse Rate Respiratory 18 Rate Blood Pressure (mmHg) O2 Sat by Pulse Oximetry Oxygen Devices in Use Now: None Appearance: Obese, white middle aged male, laying in bed, in NAD Eyes: No Scleral Icterus, PERRLA Ears/Nose/Mouth/Throat: Mucous Membranes Moist Neck: NL Appearance and Movements; NL JVP Respiratory: Symmetrical Chest Expansion and Respiratory Effort, Clear to Auscultation Cardiovascular: NL Sounds; No Murmurs; No JVD, RRR Abdominal: - - abd soft, nontender, nondistended Extremities: No Clubbing, Cyanosis, - - edema to knee, including superior to patella; tenderness to palpation; two small wounds inferior to patella which do not produce drainage upon expression attempts; active ROM of right knee limited in flexion Neurological: Alert and Oriented x 3, NL Muscle Strength and Tone Result Diagrams: 02/04/19 08:31 02/03/19 21:53 Assess/Plan/Problems-Billing Assessment: 58 yo white male with PMHx [place] s/p stenting, DM with neuropathy, HLD who presents with R knee swelling and purulent drainage at home one month s/p arthroscopy. - Patient Problems (1) Swelling of knee joint, right Current Visit: Yes Status: Acute Code(s): M25.461 - EFFUSION, RIGHT KNEE SNOMED Code(s): 283104280 Comment: -reportedly had purulent drainage at incision site of arthroscopy at home per patient. Was started on clindamycin by Dr. Rome outpatient but patient delayed starting the antibiotic -right knee is painful and edematous -patient with leukocytosis on presentation, afebrile -orthopedic surgery team involved. Dr. Rome plans to take patient to OR for washout today -blood culture pending -continue clindamycin (2) Diabetes mellitus type 2 in obese Current Visit: Yes Status: Acute Code(s): E11.69 - TYPE 2 DIABETES MELLITUS WITH OTHER SPECIFIED COMPLICATION; E66.9 - OBESITY, UNSPECIFIED SNOMED Code(s) : 93695441 Comment: -lispro SS -holding home po meds (3) CAD (coronary artery disease) Current Visit: Yes Status: Acute Code(s): I25.10 - ATHSCL HEART DISEASE OF [place] CORONARY ARTERY W/O ANG PCTRS SNOMED Code(s): 86152333 Comment: -continue home metoprolol, ARB, aspirin -it appears patient does not take statin at home (4) DVT prophylaxis Current Visit: Yes Status: Acute Code(s): Z29.9 - ENCOUNTER FOR PROPHYLACTIC MEASURES, UNSPECIFIED SNOMED Code(s): 407956852 Comment: -continue lovenox (5) Full code status Current Visit: Yes Status: Acute Code(s): Z78.9 - OTHER SPECIFIED HEALTH STATUS SNOMED Code(s): 801189254 Status and Disposition: Inpatient for joint washout
[2019-02-04] MEDS ORDERED: Dextrose 50% VIAL 50 ml IV PRN (17:20)
[2019-02-04] MEDS: Metoprolol Succinate XL TAB* 25 MG PO SCH (18:29)
[2019-02-04] MEDS: Losartan TAB* 25 MG PO SCH (18:29)
[2019-02-04] MEDS: Aspirin 81 mg CHEW TAB* 81 MG TAB.CHEW PO SCH (18:29)
[2019-02-04] MEDS ORDERED: Clindamycin 900 MG/D5W BAG(*) 900 MG/50 ML BAG IVPB ONE (18:44)
[2019-02-04] MEDS ORDERED: Midazolam* 1 MG/ML 5 ML VIAL (5 MG) ONE (19:16)
[2019-02-04] MEDS ORDERED: Propofol* 10 MG/ML 20 ML BTL ONE (19:16)
[2019-02-04] MEDS ORDERED: Lidocaine 2% MPF* 2 ML VIAL ONE (19:16)
[2019-02-04] MEDS ORDERED: Ondansetron INJ* 2 MG/ML VIAL ONE (19:16)
[2019-02-04] MEDS ORDERED: fentaNYL* 50 MCG/ML 2 ML VIAL (100 MCG VIAL) ONE ×2 (19:16→19:52)
[2019-02-04] MEDS ORDERED: DiMENhydriNATE IV* 50 MG/ML VIAL ONE (19:50)
[2019-02-04] MEDS ORDERED: Ketorolac INJ* 30 MG/ML 1 ML VIAL ONE (19:50)
[2019-02-04] MEDS ORDERED: Phenylephrine 40 MCG/ML SYRINGE ONE (19:52)
[2019-02-04] MEDS ORDERED: VASOPRESSIN 20 UNITS/ML 1 ML VIAL ONE (20:08)
--- NOTE | 2019-02-04 20:28 | CONS ---
ORTHOPEDIC CONSULTATION NOTE: DATE OF CONSULT: 02/04/19 DICTATED BY: Mila Rome MD. CHIEF COMPLAINT: Right knee pain. HISTORY OF PRESENT ILLNESS: Mr. Louise is a 58-year-old gentleman whose original knee injury was while at work on 10/21/18 while he slipped in the shower while working at [employer]. He went on to have a painful swollen right knee with mechanical symptoms. He had 01/06/19 right knee arthroscopy with synovectomy. At his 2-week followup appointment, he was doing quite well and had sutures removed. He then presented to my clinic on 02/02/19 with some drainage from his lateral portal incision and mild pain. He was fully moving the joint and aspiration attempt did not yield any fluid or purulence. He was afebrile. His pain was minimal. We placed him in a knee immobilizer to allow the incision to heal and limit micromotion. I also gave him some p.o. 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 Per report, he presented to the emergency room on 02/03/19 with increased pain, which was 10/10 in the right knee. He was reporting increased drainage and swelling, although no drainage was visualized by the medical team. He was reporting that he was unable to walk on the knee because of increased pain. He was found to have a mildly elevated white blood cell count and CRP elevation of 134. He was admitted to the hospitalist team for suspicion of a septic joint. The patient continues to report 10/10 pain in the right knee. He reports that any motion at the knee causes severe pain. Another aspiration attempt by my orthopedic PA this morning was unable to obtain any fluid. PAST MEDICAL HISTORY: Heart disease, hypercholesterolemia, [place] in 2015, borderline diabetes, and neuropathy. PAST SURGICAL HISTORY: Elbow surgery, wrist surgery, the 01/06/19 right knee arthroscopy, cardiac stenting in 2015. HOME MEDICATIONS: 1. Aspirin 325 mg p.o. b.i.d. 2. Lunesta 3 mg p.o. at bedtime. 3. Percocet 10/325 q.6 hours p.r.n. 4. Jardiance 25 mg p.o. daily. 5. Telmisartan 40 mg p.o. daily. 6. Metformin 500 mg p.o. every other day. 7. Gabapentin 300 mg p.o. b.i.d. ALLERGIES: BEE VENOM, CEPHALOSPORIN, PENICILLIN, and tomato. FAMILY HISTORY: Heart disease, hypertension, rheumatoid arthritis. SOCIAL HISTORY: The patient lives with his . 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 No tobacco or recreational drug use. Minimal alcohol use. Normally an independent ambulator. REVIEW OF SYSTEMS: Positive for right knee pain and swelling, right knee drainage from the portal incision. Negative for fever, chills, chest pain, shortness of breath, nausea, vomiting, headache, or dizziness. Otherwise, the patient reports review is negative or not relevant. PHYSICAL EXAMINATION: Vitals: Temperature 99.1, pulse of 83, blood pressure 124/40. General: The patient is a well-nourished male in no apparent distress , alert and oriented x3, pleasant mood, appropriate affect. Gait: The patient' s gait is antalgic favoring the right knee. Balance: Decreasing leg stance. Coordination normal. Right lower Extremity: The patient's skin is intact. His portal incision is not draining anything. He has a [id number] effusion at the knee with some warmth. No erythema. He is holding the knee in 15 degrees of flexion and refuses to move it because of the pain. Distally, no edema, varicosities, or hyperreflexia. 5/5 include dorsiflexion, plantarflexion strength. Full sensation to light touch in all nerve distributions and 2+ palpable DP pulses. DIAGNOSTIC STUDIES/LAB DATA: Imagin02/04/[address] shows a joint effusion, some subcutaneous edema around the anterior and infrapatellar tendon. No osseous abnormalities. Labs: 02/03/19: White blood cells 11.4. 02/04/19: White blood cells 10.8. CRP 134. ESR 40, no left shift. Hematocrit 40. INR 1.19. Potassium 3.5, chloride 103, BUN/creatinine 14 and 0.9. Blood cultures are not back. ASSESSMENT AND PLAN: Mr. Louise is a 58-year-old gentleman who is now almost 1 month after 01/06/19 right knee arthroscopy with synovectomy. Unfortunately, aspiration attempts have not been successful. The patient's clinical picture is worsening and he is demonstrating severe pain in the right knee. He does have mild leukocytosis with elevated CRP and ESR. The patient and I discussed arthroscopic irrigation and debridement of the right knee to evaluate further for infection. We discussed the risks and benefits of surgical intervention and waiting. We feel the risks of surgery are minimal and the risks of allowing infection to continue in his knee outweigh any risks of surgery. We will proceed with an arthroscopic incision and drainage. I will obtain good cultures and fluid from the knee joint while he is under anesthesia. We will try to culture specific bacteria if the knee is infected. We will then tailor antibiotic treatment to any bacterial growth. For now, he is n.p.o. I am awaiting the next available operating room to perform arthroscopic incision and drainage. Consent is in the chart. The patient understands the risks and wishes to proceed. [id number]/[facility] #: [id number] [facility]
[2019-02-04] MEDS ORDERED: Naloxone* 0.4 MG/ML 1 ML VIAL IV PRN (20:30)
[2019-02-04] MEDS ORDERED: fentaNYL* 50 MCG/ML 2 ML VIAL (100 MCG VIAL) IV PRN (20:30)
[2019-02-04] MEDS ORDERED: Ondansetron INJ* 2 MG/ML VIAL IV PRN ×2 (20:30→23:10)
[2019-02-04] MEDS ORDERED: EPINEPHRINE 1 MG/ML 1 ML VIAL ONE (21:23)
[2019-02-04] MEDS ORDERED: Bupivacaine 0.5%* 50 ML MDV VIAL ONE (21:25)
[2019-02-04] MEDS ORDERED: methylPREDNISolone ACETATE 80* 80 MG/ML 1 ML VIAL ONE (21:25)
[2019-02-04 22:39] LABS: Body Fluid Mono 7 %
[2019-02-04 22:43] LABS: Body Fluid Source OTH
[2019-02-04] MEDS ORDERED: oxyCODONE/Acetamin 5/325 MG* TAB PO PRN (23:10)
[2019-02-04] MEDS ORDERED: diPHENhydraMINE IV* 50 MG/ML 1 ml VIAL (BENADRYL) IV PRN (23:10)
[2019-02-05] MEDS: Clindamycin 600 MG/D5W BAG(*) 600 MG/50 ML BAG IV SCH ×2 (00:52→08:06)
--- NOTE | 2019-02-05 01:06 | OP ---
DATE OF OPERATION: 02/04/19 - ROOM #[id number] DATE OF : 58 ATTENDING SURGEON: Mila Rome MD. ANESTHESIOLOGIST: Dr. Daily. ANESTHESIA: General. PRE-OP DIAGNOSIS: Suspected right knee joint infection. POST-OP DIAGNOSIS: Suspected right knee joint infection. OPERATIVE PROCEDURE: Arthroscopic irrigation and debridement of the right knee joint. SPECIMEN: Multiple culture swabs and 10 cc of joint fluid sent to Microbiology for Gram stain, cell count, aerobic and anaerobic cultures and sensitivities, Microbacterium and fungal cultures. ESTIMATED BLOOD LOSS: Less than 25 cc. COMPLICATIONS: None. BRIEF HISTORY/INDICATIONS: Mr. Louise is a 58-year-old gentleman who had on right knee arthroscopy with synovectomy. He initially did very well postoperatively. Unfortunately, four days ago, he started to increase his workout regimen and his lateral portal incision opened. He developed some drainage from the incision. I saw him in the clinic on 02/02/19. At that time , he had full range of motion of the knee with minimal pain. We placed him in a knee immobilizer. He was given antibiotic. Unfortunately, he was unable to wear the brace or start the antibiotic. He then presented on 02/03/19 to the emergency room with increased pain. Over the next 24 hours, the patient developed severe pain in the knee joint. He had slightly elevated white blood cell count with elevated ESR and CRP. Two attempts at aspiration of the joint were unsuccessful. The patient, his , and I discussed the possibility of right knee joint infection. We discussed operative and nonoperative treatment options. They did wish to proceed with an arthroscopic irrigation and debridement. We all felt that the risk of ignoring an infection was greater than the risks of an arthroscopic washout. Informed consent was obtained from the patient. He understood the risks of surgery included, but were not limited to, bleeding, continued infection, damage to nearby structures, failure of wound healing, need for further surgery,anesthesia complications, stroke, heart attack, blood clot and . He wishes to proceed. INTRAOPERATIVE FINDINGS: Intraoperatively, the patient was noted to have 20 cc of thick yellow joint fluid. This did appear to be purulent. His cartilage and meniscus were unaffected by infection. There was minimal necrotic tissue. DESCRIPTION OF PROCEDURE: Mr. Louise is a 58-year-old gentleman who was identified in the pre-anesthesia unit. His right lower extremity was marked as the correct operative site. Informed consent was signed and placed in the chart. The patient was taken to the operating room and placed under anesthesia without difficulty. His right lower extremity was prepped and draped in the usual sterile fashion. Preoperative time-out was made to correctly identify the patient, side, and site. Intraoperative antibiotic was held. An 18-gauge needle was used to aspirate the joint fluid from the right knee joint. 20 cc of thick yellow fluid was aspirated. This fluid was sent for Gram stain, cell count, cultures and sensitivities. Multiple culture swabs were also sent. The patient's lateral portal incision was opened. Trocar was introduced. As soon as light and water sources were turned on, there was immediate visualization of the suprapatellar pouch. There was some thick yellow joint fluid in the suprapatellar pouch. The knee was copiously irrigated with 6 L of sterile saline. Shaver was introduced. Any loose soft tissue pieces were carefully debrided and removed from the joint fluid. The tour of the knee joint showed that there was no cartilage damage. There was no meniscal damage. There was no obvious necrotic tissue. Small amounts of inflamed synovium in the anterior joint line was debrided with the shaver. The knee was then copiously irrigated with another 6 L of sterile saline. There was no more visible yellow joint fluid. There was no visible necrotic soft tissue. The instruments were removed. The incisions were closed using 3-0 nylon suture in an interrupted fashion. Incisions were covered with Xeroform, 4x4s, and Webril. Wojciech wrap and cold pack were placed over this. The patient's anesthesia was reversed without difficulty. He was taken to the PACU in stable condition. The intended weightbearing will be weightbearing as tolerated in the knee immobilizer. Intended DVT prophylaxis will be Lovenox for the next month. The patient will have an Infectious Disease consult and we will follow the cultures closely. [id number]/[facility] #: [id number] ALECIA
[2019-02-05] MEDS: Gabapentin CAP(*) 300 MG PO SCH ×3 (03:54→21:19)
[2019-02-05] MEDS: Insulin LISPRO* 1 UNITS UNIT SUBCUT SCH ×5 (03:54→21:50)
[2019-02-05 05:36] LABS: ABS Eosinophils 0.2 10^3/ul (0-0.6); ABS Lymphocytes 2.4 10^3/ul (1.0-4.8); ABS Monocytes 1.1 10^3/ul (0-0.8); ABS Neutrophils 6.4 10^3/ul (1.5-7.7); Eosinophil % 1.7 %; Hematocrit 38 % (42-52); Hemoglobin 13.4 g/dL (14.0-18.0); Lymphocyte % 23.4 %; Mean Corpuscular HGB Conc 35 g/dL (31-36); Mean Corpuscular Hemoglobin 35 pg (27-31); Mean Corpuscular Volume 99 fL (80-94); Mean Platelet Volume 8.2 fL (7.4-10.4); Platelet Count 159 10^3/uL (150-450); Red Blood Count 3.82 10^6 /uL (4.18-5.48); Red Cell Distribution Width 13 % (10-15); White Blood Count 10.2 10^3/uL (3.5-10.8)
[2019-02-05] MEDS: Morphine INJ* 4 MG/ML 1 ML SYRINGE (NEW SYRINGE VERSION) IV PRN (05:51)
[2019-02-05] MEDS: oxyCODONE/Acetamin 5/325 MG* TAB PO PRN ×4 (05:51→21:19)
[2019-02-05 05:53] LABS: BUN/Creatinine Ratio 20.2 (8-20); Calcium 8.1 mg/dL (8.6-10.3); EGFR African American 83.8 (>60); EGFR Non-African American 69.2 (>60); Potassium 3.7 mmol/L (3.5-5.0)
[2019-02-05] MEDS: Lactated Ringers 1000 ML Bag* 1,000 ML IV SCH ×2 (07:14→07:59)
[2019-02-05] MEDS: Cyclobenzaprine TAB* 10 MG PO PRN ×2 (08:21→23:38)
[2019-02-05] MEDS: Enoxaparin(*) 40 MG/0.4 ML SYR SUBCUT SCH (08:23)
[2019-02-05] MEDS ORDERED: Vancomycin per Pharmacy* NOTE FOLLOW UP SCH (09:00)
[2019-02-05] MEDS ORDERED: Vancomycin(*) 1,500 MG in NS 0.9% 250 ML* 250 ML IVPB ONE (09:00)
--- NOTE | 2019-02-05 09:30 | PN ---
Subjective Date of Service: 02/05/19 Interval History: Patient has been having muscle spasms since washout yesterday, but this has greatly improved since receiving flexeril this morning. Feels his pain is improved. Denies chills/symptomatic fever, but has been diaphoretic. Denies chest pain, difficulty breathing, abd pain, nausea. Objective Active Medications: Acetaminophen (Tylenol Tab*) 650 mg PO Q4H PRN PRN Reason: PAIN - MILD Acetaminophen (Tylenol Tab*) 650 mg PO Q6H PRN PRN Reason: MILD PAIN or TEMP > 100.4 Aspirin (Aspirin 81 Mg Chew Tab*) 81 mg PO QPM COUNT INCLUDES THE [facility] Last Admin: 02/04/19 18:29 Dose: Not Given Cyclobenzaprine HCl (Flexeril Tab*) 10 mg PO TID PRN PRN Reason: SPASMS Last Admin: 02/05/19 08:21 Dose: 10 mg Dextrose (Dextrose 50% Vial 50 Ml*) 50 ml IV ONCE PRN PRN Reason: hypoglycemia Stop: 02/05/19 17:19 Last Admin: 02/04/19 17:42 Dose: 50 ml Diphenhydramine HCl (Benadryl Iv*) 25 mg IV Q6H PRN PRN Reason: PRURITIS Enoxaparin Sodium (Lovenox(*)) 40 mg SUBCUT 0900 COUNT INCLUDES THE [facility] Last Admin: 02/05/19 08:23 Dose: 40 mg Gabapentin (Neurontin Cap(*)) 600 mg PO BID COUNT INCLUDES THE [facility] Last Admin: 02/05/19 08:22 Dose: 600 mg Lactated Ringer's (Lactated Ringers 1000 Ml Bag*) 1,000 mls @ 100 mls/hr IV PER RATE COUNT INCLUDES THE [facility] Last Admin: 02/05/19 07:59 Dose: 100 mls/hr Vancomycin HCl 1,500 mg/ (Sodium Chloride) 250 mls @ 166.667 mls/hr IVPB ONCE ONE; Protocol Stop: 02/05/19 10:29 Insulin Human Lispro (Humalog*) 0 units SUBCUT ACHS COUNT INCLUDES THE [facility]; Protocol Last Admin: 02/05/19 08:01 Dose: Not Given Losartan Potassium (Cozaar Tab*) 50 mg PO QPM COUNT INCLUDES THE [facility]; Protocol Last Admin: 02/04/19 18:29 Dose: Not Given Metoprolol Succinate (Toprol Xl Tab*) 25 mg PO QPM COUNT INCLUDES THE [facility] Last Admin: 10/02/19 18:29 Dose: Not Given Morphine Sulfate (Morphine Inj (Syringe)*) 4 mg IV Q4H PRN PRN Reason: PAIN - SEVERE Last Admin: 02/05/19 05:51 Dose: 4 mg Ondansetron HCl (Zofran Inj*) 4 mg IV Q6H PRN PRN Reason: NAUSEA Oxycodone/Acetaminophen (Percocet 5/325 Tab*) 1 tab PO Q4H PRN PRN Reason: PAIN - MODERATE Last Admin: 02/05/19 05:51 Dose: 1 tab Oxycodone/Acetaminophen (Percocet 5/325 Tab*) 1 tab PO Q4H PRN PRN Reason: PAIN - MODERATE Pharmacy Consult (Vancomycin Per Pharmacy*) 1 note FOLLOW UP .VANC PER PHARMACY COUNT INCLUDES THE [facility]; Protocol Vital Signs - 8 hr 02/05/19 02/05/19 02/05/19 02:46 04:28 05:51 Temperature 97.8 F 99.3 F Pulse Rate 78 82 Respiratory 18 16 20 Rate Blood Pressure 119/90 118/49 (mmHg) O2 Sat by Pulse 91 93 Oximetry 02/05/19 02/05/19 02/05/19 07:57 08:14 08:21 Temperature 99.9 F Pulse Rate 91 Respiratory 18 20 20 Rate Blood Pressure 125/47 (mmHg) O2 Sat by Pulse 98 Oximetry 02/05/19 08:22 Temperature Pulse Rate Respiratory 20 Rate Blood Pressure (mmHg) O2 Sat by Pulse Oximetry Oxygen Devices in Use Now: None Appearance: Obese, middle age, white male laying in bed appearing in NAD Eyes: No Scleral Icterus, PERRLA Ears/Nose/Mouth/Throat: Mucous Membranes Moist Neck: NL Appearance and Movements; NL JVP Respiratory: Symmetrical Chest Expansion and Respiratory Effort, Clear to Auscultation Cardiovascular: NL Sounds; No Murmurs; No JVD, RRR Abdominal: - - abd soft, nontender, nondistended Extremities: No Edema, No Clubbing, Cyanosis, - - right knee in ameena wraps and immobilizing brace Skin: No Rash or Ulcers Neurological: Alert and Oriented x 3, NL Sensation, NL Muscle Strength and Tone , - - strength 5/5 dorsiflexion bilaterally Result Diagrams: 02/05/19 05:06 02/05/19 05:06 Microbiology and Other Data: Microbiology 02/04/19 20:20 Gram Stain - Final Body Fluid Skin and Soft Tissue MRSA/MSSA (PCR - Final Mrsa Negative S.aureus Positive Acid Fast Bacilli Smear - Final 02/03/19 21:53 Aerobic Blood Culture - Preliminary Blood Venous No Growth Day 1 Anaerobic Blood Culture - Preliminary No Growth Day 1 02/03/19 21:53 Aerobic Blood Culture - Preliminary Blood Venous No Growth Day 1 Anaerobic Blood Culture - Preliminary No Growth Day 1 Assess/Plan/Problems-Billing Assessment: 58 yo white male with PMHx PA s/p stenting, DM with neuropathy, HLD who presents with R knee swelling and purulent drainage at home one month s/p arthroscopy. - Patient Problems (1) Joint infection Current Visit: Yes Status: Acute Code(s): M00.9 - PYOGENIC ARTHRITIS, UNSPECIFIED SNOMED Code(s): 305741183 Comment: -s/p arthroscopy with Dr. Rome approx one month ago, developed swelling, chills , purulent draining at home -Dr. Rome performed washout 02/04/19 with purulent fluid aspirated -wound culture MSSA postive -blood cultures without growth to date -ID involved, continue vancomycin per ID rec and will likely adjust with cultures -PICC order placed -patient has been afebrile and initial leukocytosis is resolved -continue pain mgmt and bowel regimen (2) Diabetes mellitus type 2 in obese Current Visit: Yes Status: Acute Code(s): E11.69 - TYPE 2 DIABETES MELLITUS WITH OTHER SPECIFIED COMPLICATION; E66.9 - OBESITY, UNSPECIFIED SNOMED Code(s) : 79963953 Comment: -lispro SS -holding home po meds -good BG control (3) CAD (coronary artery disease) Current Visit: Yes Status: Acute Code(s): I25.10 - ATHSCL HEART DISEASE OF [place] CORONARY ARTERY W/O ANG PCTRS SNOMED Code(s): 28183253 Comment: -continue home metoprolol, ARB, aspirin -it appears patient does not take statin at home (4) DVT prophylaxis Current Visit: Yes Status: Acute Code(s): Z29.9 - ENCOUNTER FOR PROPHYLACTIC MEASURES, UNSPECIFIED SNOMED Code(s): 963719468 Comment: -continue lovenox (5) Full code status Current Visit: Yes Status: Acute Code(s): Z78.9 - OTHER SPECIFIED HEALTH STATUS SNOMED Code(s): 798908832 Status and Disposition: Inpatient with IV abx. Anticipate d/c home with IV abx when medically ready
[2019-02-05] MEDS ORDERED: Senna TAB 8.6 mg* TAB PO PRN (09:33)
[2019-02-05] MEDS: Polyethylene Glycol 3350* 17 GM PACKET PO SCH (09:54)
--- NOTE | 2019-02-05 10:22 | CONS ---
CONSULTATION REPORT: DATE OF CONSULT: 02/05/19 REQUESTING PHYSICIAN: Dr. Rome. CONSULTING SERVICE: Infectious Disease. REASON FOR CONSULTATION: Septic arthritis. IMPRESSION: 1. Septic arthritis, right knee, Gram stain from intraoperative aspiration shows gram-positive cocci . PCR for Staphylococcus aureus is positive, MRSA gene negative. His blood cultures are negative at 24 hours. 2. Allergy to PENICILLIN that caused difficulty breathing and CEPHALOSPORINS that caused him to pass out. 3. Coronary artery disease, status post percutaneous coronary intervention. RECOMMENDATION: Vancomycin goal trough 15 to 20. We will hold on clindamycin as there is some commu nity-resistant MSSA and inducible resistant for MSSA to clindamycin. He can have a PICC line if the blood cultures are negative. I discussed with him antibiotic infusions from here and his preferences for home infusion, which vancomycin should work well for. I will fill out orders to get that starte d and he will have weekly CBC, CMP, CRP, and vancomycin trough with weekly dressing changes. We disc ussed antibiotic side effects including allergic reaction, C. difficile colitis, and PICC line infect ion. He will notify me of any side effects including fever, rash or diarrhea. HISTORY OF PRESENT ILLNESS: This is a 58-year-old man who had a right knee arthroscopy and synovecto my 01/06/19, did very well. The knee had some opening up of the incision from one of the port sites and some drainage. He had some chills and sweats with swelling, pain, stiffness of the knee. He delmar ntually ended up in the ER yesterday. He had a CT scan there that showed joint effusion, some subcu edema. Aspiration attempts did not yield fluid. There was high index of suspicion for infected join t, so Dr. Rome took him to OR last night. She aspirated the joint during the procedure and with the results as noted above. She did find purulent fluid with arthroscopy in the joint space. He has im provement in his pain today, had some chills and sweats overnight, none currently. He has no other p rosthetic material present. He has no spine or other joint pain. PAST MEDICAL HISTORY: 1. Coronary artery disease, status post PCI 2014. 2. Obesity. 3. Type 2 diabetes with neuropathy. 4. Hyperlipidemia. 5. Osteoarthritis. 6. Status post bilateral ulnar nerve decompression. 7. Status post right wrist open reduction internal fixation. 8. Status post umbilical hernia repair. 9. Right knee arthroscopy and synovectomy in 2019. MEDICATIONS: 1. Tylenol. 2. Aspirin. 3. Clindamycin 600 mg every 8 hours. 4. Gabapentin. 5. Enoxaparin. 6. Losartan. 7. Metoprolol. 8. Morphine as needed. 9. Zofran as needed. 10. Oxycodone acetaminophen as needed. ALLERGIES: CEPHALOSPORIN, caused anaphylactic shock; PENICILLIN, caused anaphylaxis/breathing diffic ulty. FAMILY HISTORY: Coronary artery disease, hypertension. No recurrent infection. SOCIAL HISTORY: He lives in [place]. He works at [employer]. He is a nonsmoker. Avid fisherman. REVIEW OF SYSTEMS: All negative except as noted above to 12 point review of systems. PHYSICAL EXAM: Vital Signs: Temperature 37.7, heart rate 90, respiratory rate 18, blood pressure 12 5/47, oxygen saturation 98% on room air. In general, he is awake and not in distress. Neurologic: He is oriented x3, follows all commands. Moves all extremities. HEENT: There is no conjunctival he morrhage. Oropharynx: Without lesions. Neck: Supple without mass. Heart is regular rate and rhyth m without murmurs, rubs, or gallops. Lungs are clear to auscultation bilaterally. Abdomen is soft, n ontender, nondistended. There are bowel sounds present. Skin: There is no rash or splinter hemorrha ge. Musculoskeletal: There is no spine tenderness to palpation or joint synovitis. Right knee is w rapped and being iced. There is some diffuse edema in the distal thigh. DIAGNOSTIC STUDIES/LAB DATA: White blood cell count 10, hemoglobin 13, MCV 99, platelets 159. Creat inine 1. CRP was 134 on the first. Please see impressions and recommendations outlined above. Thank you for asking me to see Mr. Louise in consultation. [id number]/[facility] #: [id number]
--- NOTE | 2019-02-05 12:50 | PN ---
Progress Note - Progress Note Date of Service: 02/05/19 SOAP: Subjective: []Pt seen at bedside, he feels well without feeling of fever, chills, CP, SOB, dizziness or nausea. Right knee pain is much improved from yesterday Objective: []Gen: NAD, nontoxic appearing RLE: Right knee dressing CDI, no erythema surrounding, thigh is soft, DF/PF intact, DP2+, sensation intact to light touch distally Calves supple and nontender without erythema, edema or palpable cords Assessment: []POD 1 sp R knee septic arthritis growing MSSA Plan: []WBAT in imobilizer PT/OT lovenox 40 mg sq qd x 1 mo post op Seen by ID, appreciate abx recommendations. On Vanco Vital Signs Temp 98.0 F 02/05/19 12:10 Pulse 82 02/05/19 12:10 Resp 16 02/05/19 12:10 BP 119/52 02/05/19 12:10 Pulse Ox 92 02/05/19 12:10 Intake & Output 02/04/19 02/05/19 02/05/19 18:59 06:59 18:59 Intake Total 0 1000 115 Output Total 300 475 Balance 0 700 -360 Intake: IV Fluids 1000 LR 1000 IVPB 115 ABX - CLINDAMYCIN 115 Oral 0 0 Output: Urine 300 475 Laboratory Last Values WBC 10.2 10^3/uL (3.5-10.8) 02/05/19 05:06 RBC 3.82 10^6 /uL (4.18-5.48) L 02/05/19 05:06 Hgb 13.4 g/dL (14.0-18.0) L 02/05/19 05:06 Hct 38 % (42-52) L 02/05/19 05:06 MCV 99 fL (80-94) H 02/05/19 05:06 MCH 35 pg (27-31) H 02/05/19 05:06 MCHC 35 g/dL (31-36) 02/05/19 05:06 RDW 13 % (10-15) 02/05/19 05:06 Plt Count 159 10^3/uL (150-450) 02/05/19 05:06 MPV 8.2 fL (7.4-10.4) 02/05/19 05:06 Neut % (Auto) 63.4 % 02/05/19 05:06 Lymph % (Auto) 23.4 % 02/05/19 05:06 [place] % (Auto) 11.2 % 02/05/19 05:06 Eos % (Auto) 1.7 % 02/05/19 05:06 Baso % (Auto) 0.3 % 02/05/19 05:06 Absolute Neuts (auto) 6.4 10^3/ul (1.5-7.7) 02/05/19 05:06 Absolute Lymphs (auto) 2.4 10^3/ul (1.0-4.8) 02/05/19 05:06 Absolute Monos (auto) 1.1 10^3/ul (0-0.8) H 02/05/19 05:06 Absolute Eos (auto) 0.2 10^3/ul (0-0.6) 02/05/19 05:06 Absolute Basos (auto) 0.0 10^3/ul (0-0.2) 02/05/19 05:06 Absolute Nucleated RBC 0.0 10^3/ul 02/05/19 05:06 Nucleated RBC % 0.0 02/05/19 05:06 ESR 40 mm/Hr (0-19) H 02/03/19 21:53 INR (Anticoag Therapy) 1.19 (0.82-1.09) H 02/04/19 10:56 Sodium 136 mmol/L (135-145) 02/05/19 05:06 Potassium 3.7 mmol/L (3.5-5.0) 02/05/19 05:06 Chloride 103 mmol/L (101-111) 02/05/19 05:06 Carbon Dioxide 25 mmol/L (22-32) 02/05/19 05:06 Anion Gap 8 mmol/L (2-11) 02/05/19 05:06 BUN 22 mg/dL (6-24) 02/05/19 05:06 Creatinine 1.09 mg/dL (0.67-1.17) 02/05/19 05:06 Est GFR ( Amer) 83.8 (>60) 02/05/19 05:06 Est GFR (Non-Af Amer) 69.2 (>60) 02/05/19 05:06 BUN/Creatinine Ratio 20.2 (8-20) H 02/05/19 05:06 Glucose 130 mg/dL (70-100) H 02/05/19 05:06 POC Glucose (mg/dL) 94 mg/dL (70-100) 02/05/19 12:03 Lactic Acid 1.0 mmol/L (0.5-2.0) 02/03/19 21:53 Calcium 8.1 mg/dL (8.6-10.3) L 02/05/19 05:06 Total Bilirubin 1.60 mg/dL (0.2-1.0) H 02/03/19 21:53 AST 28 U/L (13-39) 02/03/19 21:53 ALT 47 U/L (7-52) 02/03/19 21:53 Alkaline Phosphatase 75 U/L (34-104) 02/03/19 21:53 C-Reactive Protein 136.22 mg/L (<8.01) H 02/04/19 08:31 Total Protein 7.3 g/dL (6.4-8.9) 02/03/19 21:53 Albumin 4.1 g/dL (3.2-5.2) 02/03/19 21:53 Globulin 3.2 g/dL (2-4) 02/03/19 21:53 Albumin/Globulin Ratio 1.3 (1-3) 02/03/19 21:53 Urine Color Yellow 02/03/19 23:57 Urine Appearance Clear 02/03/19 23:57 Urine pH 5.0 (5-9) 02/03/19 23:57 Ur Specific [place] 1.038 (1.010-1.030) H 02/03/19 23:57 Urine Protein Negative (Negative) 02/03/19 23:57 Urine Ketones Negative (Negative) 02/03/19 23:57 Urine Blood 1+ (Negative) A 02/03/19 23:57 Urine Nitrate Negative (Negative) 02/03/19 23:57 Urine Bilirubin Negative (Negative) 02/03/19 23:57 Urine Urobilinogen Negative (Negative) 02/03/19 23:57 Ur Leukocyte Esterase Negative (Negative) 02/03/19 23:57 Urine WBC (Auto) Absent (Absent) 02/03/19 23:57 Urine RBC (Auto) Trace(0-2/hpf) (Absent) 02/03/19 23:57 Urine Bacteria Absent (Absent) 02/03/19 23:57 Urine Glucose 3+(>=500 mg/dl) (Negative) A 02/03/19 23:57 Fluid Source Oth 02/04/19 20:20 Fluid Volume 16 mL 02/04/19 20:20 Fluid Color Yellow 02/04/19 20:20 Fluid Appearance Cloudy 02/04/19 20:20 Fluid WBC 52843 /mcL (0-445657) 02/04/19 20:20 Fluid RBC 9479 /mcL 02/04/19 20:20 Fluid Tot Cell Count 100 02/04/19 20:20 Fluid Neutrophils 83 % 02/04/19 20:20 Fluid Lymphocytes 10 % 02/04/19 20:20 Fluid Monocytes 7 % 02/04/19 20:20
[2019-02-05] MEDS: Losartan TAB* 25 MG PO SCH (17:50)
[2019-02-05] MEDS: Metoprolol Succinate XL TAB* 25 MG PO SCH (17:50)
[2019-02-05] MEDS: Aspirin 81 mg CHEW TAB* 81 MG TAB.CHEW PO SCH (17:50)
[2019-02-05] MEDS: Vancomycin(*) 1,250 MG in NS 0.9% 250 ML* 250 ML IVPB SCH (17:52)
[2019-02-06] MEDS: Vancomycin(*) 1,250 MG in NS 0.9% 250 ML* 250 ML IVPB SCH ×2 (02:24→11:46)
[2019-02-06] MEDS: oxyCODONE/Acetamin 5/325 MG* TAB PO PRN ×2 (05:15→10:09)
--- NOTE | 2019-02-06 07:23 | PN ---
Progress Note - Progress Note Date of Service: 02/06/19 SOAP: Subjective: Pt. reports knee pain is improved, has some stiffness. Objective: Vital Signs: Temp Pulse Resp BP Pulse Ox 98.9 F 66 16 139/59 95 02/06/19 05:19 02/06/19 05:19 02/06/19 05:19 02/06/19 05:19 02/06/19 05:19 Laboratory Results - last 24 hr 02/04/19 02/05/19 02/05/19 20:20 12:03 17:00 POC Glucose (mg/dL) 94 140 H Fluid Cell Count Rvw By RLE - dressing changed, inc c/d/i. mild effusion, distally nvi. Assessment: 58 yo M pod 2 s/p arthroscopic I and D R knee infection - +staph growth Plan: IV [facility] hospitalists and ID possible PICC line today and home with vns f/u 02/[address] goncalves in clinic, call [phone] for an appointment.
[2019-02-06] MEDS ORDERED: Vancomycin Trough Check NOTE FOLLOW UP ONE (09:30)
[2019-02-06] MEDS: Insulin LISPRO* 1 UNITS UNIT SUBCUT SCH ×2 (10:00→13:37)
[2019-02-06] MEDS: Enoxaparin(*) 40 MG/0.4 ML SYR SUBCUT SCH (10:08)
[2019-02-06] MEDS: Gabapentin CAP(*) 300 MG PO SCH (10:09)
[2019-02-06] MEDS: Polyethylene Glycol 3350* 17 GM PACKET PO SCH (10:09)
[2019-02-06 10:34] LABS: EGFR African American 125.1 (>60); EGFR Non-African American 103.4 (>60)
[2019-02-06 10:47] LABS: Vancomycin Trough 10.5 mcg/mL
--- NOTE | 2019-02-06 11:08 | PN ---
Progress Note - Progress Note Date of Service: 02/06/19 SOAP: Subjective: CC: Right septic knee HPI: Mr. Louise is a 58 yo male with PMH significant for CAD, obesity, DM2, peripheral neuropathy, HLD, and osteoarthritis. Denies fever, chills, nausea, vomiting or diarrhea. Reports minimal pain in the right knee and slowly improving mobility. Objective: Vital Signs 02/06/19 02/06/19 02/06/19 08:00 08:58 10:09 Temperature 98.7 F Pulse Rate 68 Respiratory 16 16 16 Rate Blood Pressure 132/57 (mmHg) O2 Sat by Pulse 93 93 Oximetry Physical Exam: General: NAD, laying in bed Neurological: Alert and Oriented x3 HEENT: Moist MM, no thrush Cardiovascular: Heart rate regular Respiratory: Lung sounds clear Abdominal: Bowel sounds present; ABD large, soft, and non tender MSK: No tenderness with palpation of the right knee, able to move the knee Skin: No rash. RULA wrap dressing to the right knee; clean, dry and intact Laboratory Results - last 24 hr 02/05/19 02/06/19 02/06/19 21:11 09:40 09:41 BUN 18 Creatinine 0.77 Est GFR ( Amer) 125.1 Est GFR (Non-Af Amer) 103.4 POC Glucose (mg/dL) 109 H 119 H Fluid Cell Count Rvw By Vancomycin Trough 10.5 Microbiology 02/04/19 20:20 Anaerobic Culture - Preliminary Wound No Growth Day 2 02/04/19 20:20 Gram Stain - Final Body Fluid Body Fluid Culture - Preliminary No Growth Day 2 Skin and Soft Tissue MRSA/MSSA (PCR - Final Mrsa Negative S.aureus Positive Acid Fast Bacilli Smear - Final 02/03/19 21:53 Aerobic Blood Culture - Preliminary Blood Venous No Growth Day 2 Anaerobic Blood Culture - Preliminary No Growth Day 2 02/03/19 21:53 Aerobic Blood Culture - Preliminary Blood Venous No Growth Day 2 Anaerobic Blood Culture - Preliminary No Growth Day 2 Assessment: 1. Septic right knee, [place] joint. S/P washout, POD #2. Afebrile and no leukocytosis. Blood cultures with no growth to date. Preliminary fluid cultures with no growth on day 2, PCR positive for staph aureus. PICC Line was placed this AM. 2. DM2, with peripheral neuropathy. 3. Obesity. BMI 39.7. 4. PCN and CEPHALOSPORIN allergy Plan: Continue Vancomycin, trough goal 15-20, day 3. Weekly labs while on IV ABX: CBC, CMP, CRP and Vanco trough. Followup with ID outpatient in 2 weeks. 25 minutes floor time: >50% face to face in counseling with patient and regarding ABX treatment, weekly labs, PICC care, possible side effects, and when to call the office (rash, fevers, or diarrhea).
[2019-02-06 11:55] VITALS: BP 129/65
[2019-02-06] MEDS ORDERED: Vancomycin(*) 1,000 MG in NS 0.9% 250 ML* 250 ML IVPB SCH (17:00)
[2019-02-06] MEDS ORDERED: Vancomycin(*) 1,500 MG in NS 0.9% 250 ML* 250 ML IVPB SCH (22:00)
[2019-02-06] MEDS ORDERED: Vancomycin(*) 1,250 MG in NS 0.9% 250 ML* 250 ML IVPB SCH (22:00)
--- NOTE | 2019-02-06 23:37 | DS ---
CC: Dr. Henri Clark; Dr. Mila Rome; Dr. Abdoulaye Sales; Lisa Vasquez NP * DISCHARGE SUMMARY: DATE OF ADMISSION: 02/04/19 DATE OF DISCHARGE: 02/06/19 PRIMARY CARE PROVIDER: Dr. Henri Clark. ORTHOPEDIC SURGEON: Dr. Mila Rome. ATTENDING PHYSICIAN: Dr. Anegl Meng.* (DICTATED BY SONU GALINDO NP) PRIMARY DIAGNOSIS: 1. Right knee septic arthritis. SECONDARY DIAGNOSES: 1. Diabetes mellitus type 2. 2. Coronary artery disease. 3. Hyperlipidemia. STUDIES WHILE IN THE HOSPITAL: 1. Right lower extremity CT on 02/04/19, reads as: Moderate joint effusion. Suggestion of induration surrounding the anterior cruciate ligament, which was nonspecific and may reflect postsurgical change or sprain. Subcutaneous edema around the anterior aspect of the knee, primarily anterior to the patella and inferior to the patellar tendon. Induration of half of fat pad area. Otherwise , negative CT of the right knee. No osseous abnormalities. CONSULTATIONS WHILE IN THE HOSPITAL: 1. CLARI Mendoza, with Orthopedics on 02/04/19. 2. Dr. Rome with Orthopedics, on 02/04/19. 3. Dr. Sales with Infectious Disease on 02/05/19. 4. Lisa Alatorre NP with Infectious Disease on 02/06/19. HISTORY OF PRESENT ILLNESS AND HOSPITAL COURSE: Mr. Louise is a 58-year-old male with past medical history of coronary artery disease, diabetes, and hyperlipidemia, who presented to the emergency room on 02/04/19 with complaints of right knee pain. Please see the history and physical by Dr. Rendon for complete summary of the events leading up to his hospitalization. In short, the patient underwent a right knee arthroscopy on 01/06/19 and did well postoperatively. He subsequently went home, though was noted to have some swelling his knees and aspiration was attempted as an outpatient, though was unsuccessful and the patient was placed on clindamycin. The pain became worse and the patient had associated decreased range of motion and tenderness and so, he presented to the emergency room. In the emergency room, the patient was noted to have an elevated CRP at 134. Lab work was otherwise normal. Because of the concern for septic arthritis, the patient was admitted by the hospitalist service. He was initially continued on clindamycin and was seen in consultation by CLARI Mendoza, from Orthopedics and Dr. Rome from Orthopedics. When Dr. Rome saw the patient on 02/04/19, she felt as though it was reasonable to proceed with an I and D. The patient underwent an I and D of the right knee on 02/04/19. Fluid from aspiration during that procedure did grow Staph aureus. Dr. Sales saw the patient on 02/05/19 and at that point, recommended stopping clindamycin and placing the patient on vancomycin. He indicated that the patient will need long-term antibiotics and would need a PICC line. The patient did have negative blood cultures and so, a PICC line was ultimately placed today on 02/06/19. The patient was seen this morning by Dr. Rome, who had no acute concerns and by Lisa Alatorre NP, who advised that the patient could continue vancomycin for a total of 28 days with today being day 3. She advised that the patient was appropriate for discharge with appropriate followup. The patient and his have elected to proceed with home infusion and appropriate teaching has been done by the home care company. Infectious Disease recommended that the patient have 2 doses of vancomycin here at the hospital prior to discharge and as of the time of the dictation, the patient has completed 2 doses today. PHYSICAL EXAMINATION: On exam, the patient reports feeling well. He reports pain is significantly improved as is range of motion. He has no focal neurological deficits. He is alert and oriented x4. His heart has regular rate and rhythm without murmurs, rubs, or gallops. His lungs are clear to auscultation. No rhonchi, wheezes, or rubs. There is no significant edema. Physical exam is otherwise benign. Mr. Louise is stable for discharge today. Vital signs are as follows: Temperature 98.9, heart rate 63, respiratory rate 16, oxygen saturation 94% on room air, blood pressure is 129/65. DISCHARGE MEDICATIONS: New medications: 1. Vancomycin 1250 mg IV b.i.d. 2. Heparin flush per protocol. 3. MiraLAX 17 g p.o. daily. 4. Senna 1 tab p.o. at bedtime p.r.n. constipation. Continued medications: 1. Aspirin 81 mg p.o. daily. 2. Gabapentin 600 mg p.o. b.i.d. 3. Metoprolol succinate 25 mg p.o. daily. 4. Telmisartan 40 mg p.o. daily. 5. Jardiance 25 mg p.o. daily. 6. EpiPen p.r.n. allergy symptoms. 7. Metformin 500 mg p.o. every other day. 8. Percocet 10/325 one 1 tab p.o. q.4 hours p.r.n. pain. DISCHARGE PLAN: Mr. Louise will be discharged home. Activity will be as tolerated. Diet will be diabetic. Medications are noted above. The patient will need to complete an additional 25 days of IV vancomycin per Infectious Disease recommendations. This will be done with home infusion and the patient has been set up with the home care company. PICC line has been placed and is functioning well. Per Infectious Disease, he will need to have weekly blood work while on IV antibiotics and I have sent orders for a weekly CBC, CMP, CRP, and vanco trough weekly for 4 weeks. The patient will need to follow up closely. He should see Dr. Sales in 2 weeks and he will need to see Dr. Rome on 02/13/19 per her instruction. He will additionally need to follow up with his PCP in the next 4 to 7 days. The patient is advised to return to the emergency room or nearest hospital for any worsening of symptoms, shortness of breath, lightheadedness, dizziness, chest discomfort, high fevers, chills, night seats, loss of consciousness or any other worrisome signs or symptoms. DISCHARGE CONDITION: Stable. DISCHARGE DISPOSITION: Home. This is a summarized report of a complex medical history and hospital stay. For further details, please see the entire medical record. TIME SPENT: Approximately 50 minutes was spent on this discharge. SONU GALINDO, JULIAN [id number]/[facility] #: [id number] ALECIA
[2019-02-07] MEDS ORDERED: Vancomycin Trough Check NOTE FOLLOW UP ONE (09:30)
== END 2019-02-06 16:45 | disposition home health service (06) | DRG 313 ==
LOC: ED 18:39 → MED 02-04 04:33 → SSU 02-04 22:43
PROVIDERS: ADMIT Internal Medicine; ATTEND Internal Medicine
PROC: 0S9C3ZX Drainage of Right Knee Joint, Percutaneous Approach, Diagnostic (ICD-10-PCS; 2019-02-04)
PROC: 0SBC4ZZ Excision of Right Knee Joint, Percutaneous Endoscopic Approach (ICD-10-PCS; principal; 2019-02-04 16:30)
PROC: 0SJC3ZZ Inspection of Right Knee Joint, Percutaneous Approach (ICD-10-PCS; 2019-02-05)
PROC: 02HV33Z Insertion of Infusion Device into Superior Vena Cava, Percutaneous Approach (ICD-10-PCS; 2019-02-06)
DX: M00.061 Staphylococcal arthritis, right knee (principal); I25.10 Atherosclerotic heart disease of native coronary artery without angina pectoris; E78.5 Hyperlipidemia, unspecified; E66.9 Obesity, unspecified; I11.0 Hypertensive heart disease with heart failure; B95.61 Methicillin susceptible Staphylococcus aureus infection as the cause of diseases classified elsewhere; I50.9 Heart failure, unspecified; M62.838 Other muscle spasm; E11.42 Type 2 diabetes mellitus with diabetic polyneuropathy; M25.461 Effusion, right knee; E78.00 Pure hypercholesterolemia, unspecified; M19.90 Unspecified osteoarthritis, unspecified site; Z95.5 Presence of coronary angioplasty implant and graft; Z91.030 Bee allergy status; Z91.018 Allergy to other foods; Z79.82 Long term (current) use of aspirin; Z68.39 Body mass index [BMI] 39.0-39.9, adult; Z79.84 Long term (current) use of oral hypoglycemic drugs; Z88.0 Allergy status to penicillin; Z88.1 Allergy status to other antibiotic agents; Z87.891 Personal history of nicotine dependence; I25.2 Old myocardial infarction; Z23 Encounter for immunization
CPT/HCPCS: 36415; 80048; 80053; 80202; 81003; 81015; 82565; 83605; 84520; 85025; 85610; 85652; 86140; 87040; 87070; 87073; 87077; 87102; 87116; 87186; 87205; 87206; 87640; 87641; 89051; 90686; 96374; 99284; A9270-GY; C1751; J1040; J1240; J1650; J1885; J2250; J2270; J2405; J2704; J3010; J3370; J3490; Q9967

== ENCOUNTER 2020-06-21 09:45 | Inpatient (IN) ==
[~2020-06-21 09:45] MED LIST changes: +Buffered Lidocaine 1% SYRIN 1 ml INTRADERM ONE; -Buffered Lidocaine 1% SYRIN* 1 ML/SYRINGE INTRADERM ONE; +Lactated Ringers 1000 ml BAG 1,000 ML IV SCH
[2020-06-21] MEDS ORDERED: fentaNYL 100 mcg/2 ml 50 MCG/ML VIAL ONE (10:22)
[2020-06-21] MEDS ORDERED: Lidocaine 2% PF 5 ML VIAL ONE (10:23)
[2020-06-21] MEDS ORDERED: Propofol 10 MG/ML 20 ML BTL ONE ×2 (10:23→12:43)
[2020-06-21] MEDS ORDERED: Buffered Lidocaine 1% SYRIN 1 ml INTRADERM ONE (10:49)
[2020-06-21] MEDS ORDERED: Clindamycin 900 MG/D5W BAG 900 MG/50 ML BAG IVPB ONE (10:49)
[2020-06-21] MEDS ORDERED: ROPIVACAINE 5 MG/ML 30 ML BTL (0.5%) ONE ×2 (11:04→11:34)
[2020-06-21] MEDS ORDERED: Midazolam 2 mg/2 ml VIAL 1 mg/ml 2 ml VIAL (2 mg) ONE (11:06)
[2020-06-21] MEDS ORDERED: Dexamethasone IV 4 MG/ML VIAL 1 ml VIAL ONE (11:06)
[2020-06-21] MEDS ORDERED: EPHEDrine (Pressors) 50 MG/ML VIAL ONE ×2 (12:33→12:59)
[2020-06-21] MEDS ORDERED: Phenylephrine 40 mcg/mL 10mL (400mcg) SYRINGE ONE (12:59)
[2020-06-21] MEDS ORDERED: Magnesium Hydroxide LIQ 30 ML UDC PO PRN (13:03)
[2020-06-21] MEDS ORDERED: Ondansetron 4 mg VIAL 2 MG/ML 2 ml VIAL IV PRN (13:03)
[2020-06-21] MEDS ORDERED: Lactulose 30 ml UDC PO PRN (13:03)
[2020-06-21] MEDS ORDERED: diPHENhydraMINE IV 50 MG/ML 1 ml VIAL (BENADRYL) IV PRN ×2 (13:03→14:20)
[2020-06-21] MEDS ORDERED: Ondansetron ODT 4 mg TAB 4 MG TAB PO PRN (13:03)
[2020-06-21] MEDS ORDERED: diPHENhydraMINE 25 mg TAB PO PRN (13:03)
[2020-06-21] MEDS ORDERED: Morphine 2 MG/ML SYRINGE IV PRN (13:03)
[2020-06-21] MEDS ORDERED: Naloxone 0.4 mg VIAL 0.4 mg/ml 1 ml VIAL IV PRN (14:20)
[2020-06-21] MEDS ORDERED: fentaNYL 100 mcg/2 ml 50 MCG/ML VIAL IV PRN (14:20)
[2020-06-21] MEDS: Lactated Ringers 1000 ml BAG 1,000 ML IV SCH (16:12)
[2020-06-21] MEDS ORDERED: Dextrose 50% Syringe 50 ml 25 GM/50 ML SYRINGE IV PUSH PRN (16:24)
[2020-06-21] MEDS ORDERED: TELMISARTAN 40 MG PO SCH (18:00)
[2020-06-21] MEDS ORDERED: Empaglifozin 10 mg TAB (NF) PO SCH (18:00)
[2020-06-21] MEDS: Clindamycin 600 MG/D5W BAG 600 MG/50 ML BAG IV SCH (18:29)
[2020-06-21] MEDS: Magnesium Hydroxide LIQ 30 ML UDC PO SCH (21:14)
[2020-06-22] MEDS: Clindamycin 600 MG/D5W BAG 600 MG/50 ML BAG IV SCH ×2 (02:23→10:17)
[2020-06-22] MEDS: Lactated Ringers 1000 ml BAG 1,000 ML IV SCH (03:57)
[2020-06-22 05:14] LABS: Hematocrit 35 % (42-52); Hemoglobin 11.7 g/dL (14.0-18.0); Mean Platelet Volume 7.8 fL (7.4-10.4); Platelet Count 192 10^3/uL (150-450)
[2020-06-22 05:28] LABS: BUN/Creatinine Ratio 26.6 (8-20); Calcium 8.5 mg/dL (8.6-10.3); EGFR African American 120.7 (>60); EGFR Non-African American 99.7 (>60); Potassium 4.3 mmol/L (3.5-5.0)
[2020-06-22] MEDS ORDERED: Vitamin THERAPEUTIC TAB PO SCH (09:00)
[2020-06-22] MEDS: Magnesium Hydroxide LIQ 30 ML UDC PO SCH (09:29)
[2020-06-22 12:10] VITALS: BP 119/58
== END 2020-06-22 15:22 | disposition home or self-care (01) | DRG 302 ==
LOC: AA 09:45 → SSU 16:08
PROVIDERS: ADMIT Orthopaedic Surgery Adult Reconstructive Orthopaedic Surgery; ATTEND Orthopaedic Surgery Adult Reconstructive Orthopaedic Surgery